=== PATIENT | male | born 1935 | race Caucasian/White ===

== ENCOUNTER 2020-08-27 14:09 | Emergency (ER) | payer MEDICARE, SELFPAY ==
--- NOTE | 2020-08-27 14:13 | XR_ITS ---
WS: [id number] Portable AP upright chest, 08/27/2020 Clinical Data: chest pain Comparison: Portable chest, 10/31/2018. Findings: No nodules, masses or effusions are seen. The heart is normal. The pulmonary vascularity is not increased. No pneumonia or pneumothorax is seen. There is pleural reaction at the left lung base . The aortic arch and descending aorta show calcification and tortuosity. There are old granulomatous changes in both apices. There is a dextroscoliosis of the lower thoracic spine. XR/XR chest 1V portable [id number] Impression: Atherosclerosis and old granulomatous disease.
--- NOTE | 2020-08-27 14:13 | ECG_ITS ---
[facility] Test Date: 2020-08-27 Pat Name: Neo Reynolds Department: Room: Gender: Male Sample Box Maker: : 1935 Requested By: Chelsey Hannon Order Number: [id number] Marcelo MD: Abel Fountain M.D. Measurements Intervals [place] Rate: 99 P: 27 CT: 118 QRS: 97 QRSD: 114 T: -51 QT: 337 QTc: 433 Interpretive Statements SINUS RHYTHM WITH SHORT CT INTERVAL POSSIBLE LEFT ATRIAL ENLARGEMENT [-0.1mV P WAVE IN V1/V2] BORDERLINE RIGHT AXIS DEVIATION [QRS AXIS > 90] MODERATE INTRAVENTRICULAR CONDUCTION DELAY [110+ ms QRS DURATION] ST DEVIATION AND MODERATE T-WAVE ABNORMALITY, CONSIDER ANTEROLATERAL ISCHEMIA [-0.1+ mV T WAVE IN V3-V6] ST DEVIATION AND MODERATE T-WAVE ABNORMALITY, CONSIDER INFERIOR ISCHEMIA [-0.1+ mV T WAVE IN II/aVF] Compared to ECG 10/31/2018 22:14:[address] interval now present Intraventricular conduction delay now present T-wave abnormality still present Electronically Signed On 08-29-2020 17:17:08 CDT by Abel Fountain M.D. [email or web address]. c. watkins memorial hospitalbrotipsselect medical [email or web address]/[id number] f
[2020-08-27 14:25] VITALS: BP 151/62; PULSE 99; RESP 14; TEMP 36.7; O2SAT 93; BMI 24.3
[2020-08-27 16:20] LABS: Basophils % 0.1 %; Hematocrit 41.5 % (42.0-52.0); Hemoglobin 13.6 g/dL (11.7-16.6); Lymphocytes # 0.6 10^3/uL (0.8-4.8); Lymphocytes % 4.9 %; Mean Corpuscular HGB Conc 32.8 g/dL (30.0-36.0); Mean Corpuscular Volume 91.4 fL (80-94); Mean Platelet Volume 10.3 fL (7.4-10.4); Monocytes # 0.5 10^3/uL (0.2-0.9); Monocytes % 4.3 %; Neutrophils # 11.12 10^3/uL (1.8-7.7); Neutrophils % 90.1 %; Nucleated Red Blood Cells % 0 %; Platelet Count 178 10^3/cmm (130-400); Red Blood Count 4.54 10^6/uL (4.1-5.3); Red Cell Distribution Width 12.8 % (12.1-15.1); White Blood Count 12.3 10^3/uL (4.0-10.0)
[2020-08-27 16:53] LABS: Alanine Aminotransferase 14 U/L (0-41); Albumin Level 4.3 g/dL (3.5-5.2); Alkaline Phosphatase 62 IU/L (40-130); Anion Gap 17.7 (5-19); Aspartate Amino Transferase 18 U/L (0-40); Blood Urea Nitrogen 16 mg/dL (8-23); Carbon Dioxide 21 mmol/L (22-29); Chloride 100 mmol/L (98-107); Globulin 2.8 g/dL (1.3-4.6); Glucose 152 mg/dL (65-115); Osmolality Calculated 284 mOsm/kg (285-295); Potassium 3.7 mmol/L (3.5-5.1); Sodium 135 mmol/L (136-145); Total Bilirubin 0.5 mg/dL (0.15-1.2); Total Protein 7.1 g/dL (6.6-8.7)
[2020-08-27 16:54] LABS: Troponin(5th) Baseline 48 ng/L (0-15)
[2020-08-27 18:34] LABS: Troponin 5 2HR 88.81 ng/L (0-15)
[2020-08-27 18:39] LABS: Troponin 5 2HR Delta 40.81 ABS# (0-10)
--- NOTE | 2020-08-27 20:13 | ECG_ITS ---
[facility] Test Date: 2020-08-27 Pat Name: Neo Reynolds Department: Room: Gender: Male Oenologist: : 1935 Requested By: Chelsey Hannon Order Number: [id number] Marcelo MD: Abel Fountain M.D. Measurements Intervals [place] Rate: 86 P: 63 NC: 148 QRS: 99 QRSD: 114 T: 9 QT: 355 QTc: 427 Interpretive Statements SINUS RHYTHM BORDERLINE RIGHT AXIS DEVIATION [QRS AXIS > 90] MODERATE INTRAVENTRICULAR CONDUCTION DELAY [110+ ms QRS DURATION] NONSPECIFIC ST & T-WAVE ABNORMALITY Compared to ECG 08/27/2020 14:34:03 Short NC interval no longer present Possible ischemia no longer present T-wave abnormality still present Electronically Signed On 08-29-2020 17:24:35 CDT by Abel Fountain M.D. [id number]
[2020-08-27 20:32] VITALS: BP 135/91; PULSE 90; RESP 16; TEMP 36.6; O2SAT 96
--- NOTE | 2020-08-27 20:37 | ED_ITS ---
HPI - SOB/Dyspnea General: Chief Complaint: Shortness of Breath/Dyspnea Stated Complaint: Chest Pain Time Seen by Provider: 08/27/20 19:50 Source: patient Mode of arrival: ambulatory Limitations: no limitations History of Present Illness: HPI Narrative: Patient is an 84-year-old male with a history of COPD who had a hospital admission about 2 weeks ago for pneumonia. He states that he has been having progressively worsening shortness of breath and this morning he developed some retrosternal chest pain. He used his albuterol but it did not help the chest pain and eventually his friend/significant other gave him some magnesium tablets which helped the pain a little bit. He was then brought into the emergency department to be evaluated. Because of how busy the ED has been the patient has been in the waiting room for about 8 hours. He states chest pain has resolved. He still has some shortness of breath. At the time he had chest pain his significant other said he was also diaphoretic and nauseous. MD elicited complaint: shortness of breath Pertinent past history: COPD Onset (ago): hour(s) (10) Context: recent illness Timing: constant Severity: moderate Exacerbating factors: exertion Relieving factors: rest Known history of: COPD Associated symptoms: Reports chest pain, diaphoresis and nausea; Deny abdominal pain, chest congestion, cough, dizziness, extremity pain, fever(s), hemoptysis, lightheadedness, myalgias, orthopnea, palpitations, paresthesias, polydipsia, polyuria, rash, sense of impending doom, syncope or vomiting Review of Systems General: Reports: 10 or more systems reviewed and unremarkable except in HPI and below Const: Reports: diaphoresis; Denies: fever(s) Card: Reports: chest pain; Denies: palpitations, lightheadedness, syncope or orthopnea Resp: Denies: hemoptysis or chest congestion GI: Reports: nausea; Denies: abdominal pain or vomiting Musc: Denies: extremity pain Neuro: Denies: dizziness Endo: Denies: polyuria or polydipsia PFSH ED PFSH: Family History Mother Cancer Father Cancer Hypertension Brother Cancer Sister Cancer Social History Smoking and tobacco status: never smoked Alcohol intake: never Physical Exam Const: COMMON NORMALS: no acute distress, average body habitus, patient oriented x3, no limitations, healthy appearing, alert and well nourished HENMT: COMMON NORMALS: normocephalic, atraumatic and moist oral mucous membranes HEAD & SCALP: normocephalic and atraumatic Neck/C-Spine: COMMON NORMALS: no meningeal signs and no JVD Resp: COMMON NORMALS: normal respiratory effort, No retractions, No use of ac cessory muscles, clear to auscultation bilaterally and percussion normal AUSCULTATION: clear to auscultation bilaterally PERCUSSION: percussion normal Cardio: COMMON NORMALS: no JVD, regular rate, regular rhythm, S1 normal heart sound present, S2 normal heart sound present, No gallops present (Cardio), No clicks present (Cardio), No murmurs present (Cardio), No rub (Cardio) and Peripheral pulses 2+ throughout RATE: regular rate RHYTHM: regular rhythm HEART SOUNDS: S1 normal heart sound present and S2 normal heart sound present PERIPHERAL PULSES: Peripheral pulses 2+ throughout GI: COMMON NORMALS: Normal to inspection, nondistended, normoactive bowel sounds present, Soft to palpation, non-tender, No hepatosplenomegaly present, no masses and no bruits PALPATION: Yes Soft to palpation and Yes No hepatosplenomegaly present Extremity: COMMON NORMALS: normal to inspection, full ROM, capillary refill normal, no calf tenderness and no pedal edema Neuro: COMMON NORMALS: patient oriented x3 SENSORIUM/ORIENTATION: Yes alert MENINGEAL SIGNS: Yes no meningeal signs Course Reevaluation(s): Reevaluation #1: Discussed his lab and imaging findings with him. Explained that he is 2-hour troponin delta is consistent with a non-STEMI and I would like to admit him to the hospital. Patient however does not want to be admitted to the hospital and wants to be discharged home. I had a lengthy conversation with him on 2 different occasions to explain to him the seriousness of his condition and potential outcome including . He voiced understanding. Wants to leave AMA. Time: 20:37 Vital Signs: Vital signs: Vital Signs Temperature 97.9 F 08/27/20 20:32 Pulse Rate 89 08/27/20 20:59 Respiratory Rate 19 H 08/27/20 20:59 Blood Pressure 147/69 08/27/20 20:59 Pulse Oximetry 95 08/27/20 20:59 MDM - SOB/Dyspnea MDM Narrative: Medical decision making narrative: 84-year-old male with a history of coronary artery disease, COPD, recent pneumonia presented to the emergency department with shortness of breath and chest pain. Evaluation in the emergency department is consistent with a non-STEMI. The patient however refused admission and wants to sign out AGAINST MEDICAL ADVICE. He however requested a prescription for carvedilol as he was taking it in the hospital and does not have any refills. I had 2 extensive conversations with him about the seriousness of his illness and that if he does not get treatment he may worsen and possibly . He voiced understanding but still wanted to sign out AGAINST MEDICAL ADVICE. He did agree to get a dose of therapeutic enoxaparin before discharge. He significant other tried to contact his daughter to see if she could convince him to stay but she was unable to get her on the phone. He was counseled to return to the emergency department if he has any concerns or if his symptoms worsen. Medical Records: Attestation: I reviewed the patient's medical records. Lab Data: Attestation: I reviewed the patient's lab results. Labs: Lab Results 08/27/20 08/27/20 08/27/20 Range/Units 16:07 16:07 16:07 WBC 12.3 H (4.0-10.0) 10^3/ uL RBC 4.54 (4.1-5.3) 10^6/u L Hgb 13.6 (11.7-16.6) g/dL Hct 41.5 L (42.0-52.0) % MCV 91.4 (80-94) fL MCH 30.0 (28.0-34.0) pg MCHC 32.8 (30.0-36.0) g/dL RDW 12.8 (12.1-15.1) % Plt Count 178 (130-400) 10^3/c mm MPV 10.3 (7.4-10.4) fL Neut % (Auto) 90.1 % Lymph % (Auto) 4.9 % [place] % (Auto) 4.3 % Eos % (Auto) 0.0 % Baso % (Auto) 0.1 % Neut # (Auto) 11.12 H (1.8-7.7) 10^3/u L Lymph # (Auto) 0.6 L (0.8-4.8) 10^3/u L [place] # (Auto) 0.5 (0.2-0.9) 10^3/u L Eos # (Auto) 0.0 (0.0-0.8) 10^3/u L Baso # (Auto) 0.0 (0.0-0.1) 10^3/u L Nucleated RBC % (a uto) 0 % Nucleated RBCs # 0.0 /100WBC Sodium 135 L (136-145) mmol/L Potassium 3.7 (3.5-5.1) mmol/L Chloride 100 (98-107) mmol/L Carbon Dioxide 21 L (22-29) mmol/L Anion Gap 17.7 (5-19) BUN 16 (8-23) mg/dL Creatinine 0.9 (0.7-1.2) mg/dL GFR Calculation Not Reportable Glucose 152 H (65-115) mg/dL Calculated Osmolal ity 284 L (285-295) mOsm/k g Calcium 9.0 (8.5-10.5) mg/dL Total Bilirubin 0.5 (0.15-1.2) mg/dL AST 18 (0-40) U/L ALT 14 (0-41) U/L Alkaline Phosphata se 62 (40-130) IU/L Troponin T Baselin e 48 H (0-15) ng/L Troponin T 120 Min telida (0-15) ng/L Delta Troponin T (0-10) ABS# Total Protein 7.1 (6.6-8.7) g/dL Albumin 4.3 (3.5-5.2) g/dL Globulin 2.8 (1.3-4.6) g/dL 08/27/20 Range/Units 18:06 WBC (4.0-10.0) 10^3/ uL RBC (4.1-5.3) 10^6/u L Hgb (11.7-16.6) g/dL Hct (42.0-52.0) % MCV (80-94) fL MCH (28.0-34.0) pg MCHC (30.0-36.0) g/dL RDW (12.1-15.1) % Plt Count (130-400) 10^3/c mm MPV (7.4-10.4) fL Neut % (Auto) % Lymph % (Auto) % [place] % (Auto) % Eos % (Auto) % Baso % (Auto) % Neut # (Auto) (1.8-7.7) 10^3/u L Lymph # (Auto) (0.8-4.8) 10^3/u L [place] # (Auto) (0.2-0.9) 10^3/u L Eos # (Auto) (0.0-0.8) 10^3/u L Baso # (Auto) (0.0-0.1) 10^3/u L Nucleated RBC % (a uto) % Nucleated RBCs # /100WBC Sodium (136-145) mmol/L Potassium (3.5-5.1) mmol/L Chloride (98-107) mmol/L Carbon Dioxide (22-29) mmol/L Anion Gap (5-19) BUN (8-23) mg/dL Creatinine (0.7-1.2) mg/dL GFR Calculation Glucose (65-115) mg/dL Calculated Osmolal ity (285-295) mOsm/k g Calcium (8.5-10.5) mg/dL Total Bilirubin (0.15-1.2) mg/dL AST (0-40) U/L ALT (0-41) U/L Alkaline Phosphata se (40-130) IU/L Troponin T Baselin e (0-15) ng/L Troponin T 120 Min telida 88.81 H (0-15) ng/L Delta Troponin T 40.81 H* (0-10) ABS# Total Protein (6.6-8.7) g/dL Albumin (3.5-5.2) g/dL Globulin (1.3-4.6) g/dL Imaging Data^: CXR: Attestation: I personally reviewed and interpreted this imaging study as follows: Radiologist's impression: [address] [id number] ReportSigned Patient: Neo Reynolds #: [id number]: 1935cct#:[id number]/Sex: 84 / MADM Date: 08/27/20Loc: ERRoom/Bed:Attending Dr: Ordering Provider/Ordering MD: Chelsey Hannon Date of Service: 08/27/20 Procedure(s): XR chest 1V portable [id number] Accession Number(s): [id number] Report Number: [id number] WS: [id number] Portable AP upright chest, 08/27/2020 Clinical Data: chest pain Comparison: Portable chest, 10/31/2018. Findings: No nodules, masses or effusions are seen. The heart is normal. The pulmonary vascularity is not increased. No pneumonia or pneumothorax is seen. There is pleural reaction at the left lung base. The aortic arch and descending aorta show calcification and tortuosity. There are old granulomatous changes in both apices. There is a dextroscoliosis of the lower thoracic spine. XR/XR chest 1V portable [id number] Impression: Atherosclerosis and old granulomatous disease. Dictated By:Chetna Leonard MDSigned By:Chetna Leonard MDSigned Date/Time:08/27/20 1451DD/ 1449 EKG Data^: EKG 1: Attestation: I personally reviewed and interpreted this EKG as follows: EKG Interpretation Date: 08/27/20 EKG interpretation time: 20:07 Prior EKG tracings: not available for review Interpretation: Sinus rhythm. Heart rate [address] changes. Discharge Plan Discharge Patient Disposition: Left Against Medical Advice Clinical Impression: Non-ST elevation CT (NSTEMI) Condition: Stable Prescriptions: New carvedilol 6.25 mg tablet 6.25 mg PO BID Qty: 60 RF: 0 Continued tamsulosin 0.4 mg capsule 0.4 mg PO DAILY RF: 0 methylprednisolone [Medrol (Shaun)] 4 mg tablets,dose pack See Rx Instructions PO PER PKG DIR Qty: 21 RF: 0 doxycycline hyclate 100 mg tablet 100 mg PO BID 10 Days Qty: 20 RF: 0 Prilosec OTC 20 mg tablet,delayed release (DR/EC) 20 mg PO DAILY RF: 0 nitroglycerin [Nitrostat] 0.4 mg tablet, sublingual 0.4 mg SUBLINGUAL Q5M PRN (Reason: Chest Pain) RF: 0 losartan 25 mg tablet 25 mg PO DAILY RF: 0 amlodipine 5 mg tablet 5 mg PO DAILY RF: 0 Refresh Contacts Drops 1 drop ophthalmic (eye) BID RF: 0 multivitamin Tablet 1 tab PO DAILY RF: 0 alprazolam 0.25 mg tablet 0.25 mg PO BID PRN (Reason: ANXIETY/STRESS) RF: 0 albuterol sulfate 90 mcg/actuation HFA aerosol inhaler 1 - 2 puff INHALATION Q4H PRN (Reason: Dyspnea) RF: 0 fluticasone propionate 50 mcg/actuation spray,suspension 1 - 2 spray INTRANASAL DAILY PRN (Reason: Congestion) RF: 0 omega-3 fatty acids Capsule 1 cap PO DAILY RF: 0 mirtazapine 7.5 mg tablet 7.5 mg PO BEDTIME RF: 0 magnesium Tablet 1 tab PO DAILY RF: 0 Discharge Orders: Discharge ED (Routine); Ordered 08/27/20 Ordered By: Dov De Leon Referrals: Oni Trujillo DO [Primary Care Provider] - 1-3 days Discharge Diet: Usual diet Discharge Activity: Increase activity as tolerated Patient Instructions: Myocardial Infarction (GEN) Activity Restrictions/Additional Instructions: Return for any new or worsening symptoms. Follow-up with your primary care provider within 3 days. Continue your home medications. If you notice any changes including worsening shortness of breath, chest pain, or anything concerning please return to be evaluated. Like we discussed I want you to be admitted to the hospital for heart attack. Coding Level of Care Code ED Purchaser for Dominique Cool
[2020-08-27] MEDS: enoxaparin 80 mg/0.8 mL Syringe 70 MG SUBCUT (20:46)
[2020-08-27 20:59] VITALS: BP 147/69; PULSE 89; RESP 19; O2SAT 95
== END 2020-08-27 21:04 | disposition left against medical advice (07) ==
PROVIDERS: Physician Assistant; Emergency Provider Family Medicine; PCP Family Medicine
DX: I21.4 Non-ST elevation (NSTEMI) myocardial infarction (principal); Z53.21 Procedure and treatment not carried out due to patient leaving prior to being seen by health care provider
CPT/HCPCS: 36415; 71045; 80053; 84484; 85025; 93005; 96372; 99283; J1650

== ENCOUNTER → 2020-09-21 13:03 | Outpatient (BNVA) | payer MEDICARE, SELFPAY | PROVIDERS: PCP Family Medicine; Visit Provider Nurse Practitioner | DX: Z20.822 Contact with and (suspected) exposure to COVID-19 (principal); R53.1 Weakness; R05 Cough | CPT/HCPCS: 71046; 81000; 87635 ==

== ENCOUNTER → 2020-11-14 15:47 | Outpatient (BNVA) | payer MEDICARE, SELFPAY | PROVIDERS: PCP Family Medicine; Visit Provider Nurse Practitioner | DX: M25.519 Pain in unspecified shoulder (principal) | CPT/HCPCS: 73030 ==

== ENCOUNTER → 2021-02-14 13:42 | Outpatient (BNVA) | payer MEDICARE, SELFPAY | PROVIDERS: PCP Family Medicine; Visit Provider Nurse Practitioner Family | DX: Z20.822 Contact with and (suspected) exposure to COVID-19 (principal); Z20.828 Contact with and (suspected) exposure to other viral communicable diseases | CPT/HCPCS: 87635 ==

== ENCOUNTER 2021-08-03 14:55 | Emergency (ER) | payer MEDICARE, SELFPAY ==
[2021-08-03 15:19] VITALS: BP 148/70; PULSE 72; RESP 16; TEMP 36.6; O2SAT 92; BMI 22.1
--- NOTE | 2021-08-03 16:19 | ED_ITS ---
Documented by User: JAX Bhakta 08/03/21 16:38 HPI - Fall General: Chief Complaint: Fall Stated Complaint: BACK PAIN FROM FALL Time Seen by Provider: 08/03/21 16:06 Source: patient and family (daughter) Mode of arrival: wheelchair Limitations: no limitations (hard of hearing-hearing aid batteries are ) History of Present Illness: Patient is an 85-year-old male who presents to ED today along with his daughter for evaluation following a fall. Patient resides at the [facility] and states around 2 AM in the morning he got up from bed and tripped and fell and landed onto his right side/ribs. Patient states he did not strike his head or lose consciousness. He was able to pull his call light for help and states the nurses were able to help get him up. Patient denies any other pain or injury sustained during his fall. He does report previous right rib fractures that felt similar to his discomfort now. He is not complaining of shortness of breath or difficulty breathing. No abdominal pain. No midline back pain or hip pain. MD complaint: fall Onset (ago): hour(s) Fall from: standing Fall witnessed: no Place fall occurred: detention/SNF Loss of consciousness: None Prolonged down time: no Symptoms prior to fall: none Context: tripped/slipped Location of injury: chest Associated symptoms-after fall: Reports chest pain (R posterior rib pain); Denies abdominal pain, headache(s), lightheadedness or neck pain Review of Systems Const: Denies: fever(s) Eyes: Denies: change in vision Card: Reports: chest pain (R posterior rib pain); Denies: palpitations, irregular heart rhythm, lightheadedness, syncope or pre- syncope Resp: Reports: dyspnea (chronic due to COPD-at baseline); Denies: wheezing or hemoptysis GI: Denies: abdominal pain, nausea or vomiting Musc: Denies: neck pain, back pain, extremity pain or joint pain Neuro: Denies: headache(s) PFS ED PFSH: Family History Mother Cancer Father Cancer Hypertension Brother Cancer Sister Cancer Social History Alcohol intake: never Physical Exam Const: COMMON NORMALS: no limitations and alert GENERAL APPEARANCE: cooperative ORIENTATION/CONSCIOUSNESS: Yes awake, Yes oriented to person and Yes oriented to place HENMT: COMMON NORMALS: normocephalic and atraumatic HEAD & SCALP: normal to inspection, normocephalic and atraumatic FACE & SINUS: normal facial exam Neck/C-Spine: COMMON NORMALS: full ROM GENERAL: Yes normal visual inspection CERVICAL SPINE: Yes cervical ROM normal, No pain with cervical ROM, No Cervical spine tenderness and No Paracervical muscle tenderness Chest: COMMONS NORMALS: normal inspection of the chest CHEST: Yes localized rib tenderness with anteroposterior compression OTHER: TTP R posterior ribs Resp: COMMON NORMALS: normal respiratory effort AUSCULTATION: other (diffuse course lung sounds bilaterally most likely chronic from his COPD) Cardio: COMMON NORMALS: regular rate and regular rhythm RATE: regular rate RHYTHM: regular rhythm GI: COMMON NORMALS: Normal to inspection, nondistended, normoactive bowel sounds present, Soft to palpation, non-tender, No hepatosplenomegaly present and no masses INSPECTION: No abdominal wall ecchymosis PALPATION: Yes Soft to palpation and Yes No hepatosplenomegaly present Back/Pelvis: COMMON NORMALS: thoracic and lumbar spine normal to inspection, no thoracic nor lumbar tenderness and thoraco-lumbar ROM normal THORACIC SPINE/UPPER BACK: Yes normal to inspection and No thoracic spinal tenderness LUMBAR SPINE/LOWER BACK: Yes normal to inspection and No lumbar spinal tender ness PELVIS: Yes buttocks normal SACROILIAC JOINTS: Yes SI joints normal SACRUM: no tenderness COCCYX: no tenderness Extremity: COMMON NORMALS: normal to inspection and full ROM GENERAL: Yes normal exam except as noted Neuro: OSIEL COMA SCALE: document GCS findings [place] coma scale eye opening: Spontaneous [place] coma scale verbal response: Orientated [place] coma scale motor response: Obey commands Osiel coma scale total score: 15 COMMON NORMALS: moves all extremities, no focal motor deficits and no sensory deficits noted SENSORIUM/ORIENTATION: Yes alert, Yes oriented to person and Yes or iented to place Skin: TRAUMA: no lacerations or abrasions Course Vital Signs: Vital signs: Vital Signs Temperature 97.9 F 08/03/21 15:19 Pulse Rate 72 08/03/21 15:19 Respiratory Rate 16 08/03/21 15:19 Blood Pressure 148/70 08/03/21 15:19 Pulse Oximetry 92 08/03/21 15:19 MDM - Fall Lab Data : 08/03/21 17:05 08/03/21 17:05 Radiology Impressions Ribs X-Ray 08/03/21 16:26 IMPRESSION: 1. Acute right 6th, 7th, and 8th rib fractures. Chest/Abdomen/Pelvis CT 08/03/21 17:03 IMPRESSION: 1. Acute right 5th through 10th rib fractures as described. 2. 2.3 cm irregular nodule along the right major fissure. For both low risk and high risk patients, consider CT Chest at 3 months, PET/CT, or biopsy. IMPRESSION: 1. No acute finding in the abdomen or pelvis. COMMENTS: Consistent with the [employer]'s Incidental Findings Committee white paper (J Am Tiff Radiol 2018): Any incidental renal lesion less than 1 cm or classified as too small to characterize, or any incidental cystic renal lesion characterized as simple-appearing, is likely benign. No follow-up imaging is recommended for these lesions per consensus recommendations based on imaging criteria. Laboratory Results WBC 10.9 10^3/uL (4.0-10.0) H 08/03/21 17:05 RBC 4.71 10^6/uL (4.1-5.3) 08/03/21 17:05 Hgb 13.8 g/dL (11.7-16.6) 08/03/21 17:05 Hct 41.9 % (42.0-52.0) L 08/03/21 17:05 MCV 89.0 fl (80-94) 08/03/21 17:05 MCH 29.3 pg (28.0-34.0) 08/03/21 17:05 MCHC 32.9 g/dL (30.0-36.0) 08/03/21 17:05 RDW 13.0 % (12.1-15.1) 08/03/21 17:05 Plt Count 212 10^3/cmm (130-400) 08/03/21 17:05 MPV 10.1 fL (7.4-10.4) 08/03/21 17:05 Neut % (Auto) 77.5 % 08/03/21 17:05 Lymph % (Auto) 12.9 % 08/03/21 17:05 [place] % (Auto) 8.5 % 08/03/21 17:05 Eos % (Auto) 0.5 % 08/03/21 17:05 Baso % (Auto) 0.2 % 08/03/21 17:05 Neut # (Auto) 8.49 10^3/uL (1.8-7.7) H 08/03/21 17:05 Lymph # (Auto) 1.4 10^3/uL (0.8-4.8) 08/03/21 17:05 [place] # (Auto) 0.9 10^3/uL (0.2-0.9) 08/03/21 17:05 Eos # (Auto) 0.1 10^3/uL (0.0-0.8) 08/03/21 17:05 Baso # (Auto) 0.0 10^3/uL (0.0-0.1) 08/03/21 17:05 Nucleated RBC % (auto) 0 % 08/03/21 17:05 Nucleated RBCs # 0.0 /100WBC 08/03/21 17:05 Sodium 128 mmol/L (136-145) L 08/03/21 17:05 Potassium 4.4 mmol/L (3.5-5.1) 08/03/21 17:05 Chloride 92 mmol/L (98-107) L 08/03/21 17:05 Carbon Dioxide 24 mmol/L (22-29) 08/03/21 17:05 Anion Gap 16.4 (5-19) 08/03/21 17:05 BUN 17 mg/dL (8-23) 08/03/21 17:05 Creatinine 0.7 mg/dL (0.7-1.2) 08/03/21 17:05 GFR Calculation Not Reportable 08/03/21 17:05 Glucose 106 mg/dL (65-115) 08/03/21 17:05 Calculated Osmolality 268 mOsm/kg (285-295) L 08/03/21 17:05 Calcium 9.2 mg/dL (8.5-10.5) 08/03/21 17:05 Total Bilirubin 1.0 mg/dL (0.15-1.2) 08/03/21 17:05 AST 28 U/L (0-40) 08/03/21 17:05 ALT 15 U/L (0-41) 08/03/21 17:05 Alkaline Phosphatase 64 IU/L (40-130) 08/03/21 17:05 Total Protein 7.7 g/dL (6.6-8.7) 08/03/21 17:05 Albumin 4.6 g/dL (3.5-5.2) 08/03/21 17:05 Globulin 3.1 g/dL (1.3-4.6) 08/03/21 17:05 Discharge Plan Discharge Patient Disposition: Transfer to ED Clinical Impression: Multiple fractures of rib involving four or more ribs, Fall from slipping Condition: Stable Prescriptions: No Action tamsulosin 0.4 mg capsule 0.4 mg PO DAILY 0RF Prilosec OTC 20 mg tablet,delayed release (DR/EC) 20 mg PO DAILY 0RF nitroglycerin [Nitrostat] 0.4 mg tablet, sublingual 0.4 mg SUBLINGUAL Q5M PRN (Reason: Chest Pain) 0RF losartan 25 mg tablet 25 mg PO DAILY 0RF amlodipine 5 mg tablet 5 mg PO DAILY 0RF Refresh Contacts Drops 1 drop ophthalmic (eye) BID 0RF multivitamin Tablet 1 tab PO DAILY 0RF alprazolam 0.25 mg tablet 0.25 mg PO BID PRN (Reason: ANXIETY/STRESS) 0RF albuterol sulfate 90 mcg/actuation HFA aerosol inhaler 1 - 2 puff INHALATION Q4H PRN (Reason: Dyspnea) 0RF fluticasone propionate 50 mcg/actuation spray,suspension 1 - 2 spray INTRANASAL DAILY PRN (Reason: Congestion) 0RF omega-3 fatty acids Capsule 1 cap PO DAILY 0RF mirtazapine 7.5 mg tablet 7.5 mg PO BEDTIME 0RF magnesium Tablet 1 tab PO DAILY 0RF carvedilol 6.25 mg tablet 6.25 mg PO BID Qty: 60 0RF Rx Instructions: must administer with a meal/food Referrals: Oni Trujillo, DO [Primary Care Provider] - Sign Out Sign Out Data: Patient Sign Out occurred on 08/03/21 at 17:15. Patient's care was discussed, and care was transferred from to Mio Meade. Coding Level of Care Code ED Synthetic Cloth Binding Cutter for Chg Fwd Exam Comprehensive Documented by User: JF Dorsey 08/03/21 19:32 HPI - Fall General: Chief Complaint: Fall Stated Complaint: BACK PAIN FROM FALL Time Seen by Provider: 08/03/21 16:06 [facility] ED PFSH: Family History Mother Cancer Father Cancer Hypertension Brother Cancer Sister Cancer Social History Alcohol intake: never Physical Exam Neuro: OSIEL COMA SCALE: document GCS findings [place] coma scale total score: 15 Course ED course: 1919, CT noted 6 rib fractures 5 through 10. No other obvious in juries noted. Patient answers questions. Reviewed patient with Dr. Kitchen, attending ER physician. Patient will need to be transferred for trauma care due to multiple rib fractures and comorbidities. I reviewed this with family who agreed to plan. Vital Signs: Vital signs: Vital Signs Temperature 97.9 F 08/03/21 15:19 Pulse Rate 72 08/03/21 15:19 Respiratory Rate 16 08/03/21 15:19 Blood Pressure 148/70 08/03/21 15:19 Pulse Oximetry 92 08/03/21 15:19 MDM - Fall Medical Decision Making 85-year-old male patient comes in today with injuries to the right ribs. Patient had slipped and fell in the tub striking his right ribs against the tub. Patient has pain and discomfort with movement to the right chest wall. Patient does have a history of prior rib fractures, COPD, GERD, BPH, and resides at a [facility]. On exam patient is tender in the right lateral ribs. Patient has decreased lung sounds in the right. Patient is alert and responds to questions. Abdomen soft with some with no tenderness. Vital signs are stable with a blood pressure of 148 systolic. Differential diagnosis includes but not limited to multiple rib fractures, lung contusion, organ injury. Chest x-ray confirmed 3 rib fractures [address] was recommended by Dr. Rawls and CT showed acute right rib fractures 5 through 10, no other acute findings were noted in the abdomen or pelvis. CBC had a bump in the white blood cell count at 10,000. CMP noted a sodium of 128 and potassium of 4.4. Reviewed exam with Dr. Kitchen after CT report he recommended transfer to trauma center due to multiple rib fractures and patient's age. Patient was transferred to [facility] in [place] for trauma to Dr. Jackson Lab Data : 08/03/21 17:05 08/03/21 17:05 Radiology Impressions Ribs X-Ray 08/03/21 16:26 IMPRESSION: 1. Acute right 6th, 7th, and 8th rib fractures. Chest/Abdomen/Pelvis CT 08/03/21 17:03 IMPRESSION: 1. Acute right 5th through 10th rib fractures as described. 2. 2.3 cm irregular nodule along the right major fissure. For both low risk and high risk patients, consider CT Chest at 3 months, PET/CT, or biopsy. IMPRESSION: 1. No acute finding in the abdomen or pelvis. COMMENTS: Consistent with the [employer]'s Incidental Findings Committee white paper (J Am Tiff Radiol 2018): Any incidental renal lesion less than 1 cm or classified as too small to characterize, or any incidental cystic renal lesion characterized as simple-appearing, is likely benign. No follow-up imaging is recommended for these lesions per consensus recommendations based on imaging criteria. Laboratory Results WBC 10.9 10^3/uL (4.0-10.0) H 08/03/21 17:05 RBC 4.71 10^6/uL (4.1-5.3) 08/03/21 17:05 Hgb 13.8 g/dL (11.7-16.6) 08/03/21 17:05 Hct 41.9 % (42.0-52.0) L 08/03/21 17:05 MCV 89.0 fl (80-94) 08/03/21 17:05 MCH 29.3 pg (28.0-34.0) 08/03/21 17:05 MCHC 32.9 g/dL (30.0-36.0) 08/03/21 17:05 RDW 13.0 % (12.1-15.1) 08/03/21 17:05 Plt Count 212 10^3/cmm (130-400) 08/03/21 17:05 MPV 10.1 fL (7.4-10.4) 08/03/21 17:05 Neut % (Auto) 77.5 % 08/03/21 17:05 Lymph % (Auto) 12.9 % 08/03/21 17:05 [place] % (Auto) 8.5 % 08/03/21 17:05 Eos % (Auto) 0.5 % 08/03/21 17:05 Baso % (Auto) 0.2 % 08/03/21 17:05 Neut # (Auto) 8.49 10^3/uL (1.8-7.7) H 08/03/21 17:05 Lymph # (Auto) 1.4 10^3/uL (0.8-4.8) 08/03/21 17:05 [place] # (Auto) 0.9 10^3/uL (0.2-0.9) 08/03/21 17:05 Eos # (Auto) 0.1 10^3/uL (0.0-0.8) 08/03/21 17:05 Baso # (Auto) 0.0 10^3/uL (0.0-0.1) 08/03/21 17:05 Nucleated RBC % (auto) 0 % 08/03/21 17:05 Nucleated RBCs # 0.0 /100WBC 08/03/21 17:05 Sodium 128 mmol/L (136-145) L 08/03/21 17:05 Potassium 4.4 mmol/L (3.5-5.1) 08/03/21 17:05 Chloride 92 mmol/L (98-107) L 08/03/21 17:05 Carbon Dioxide 24 mmol/L (22-29) 08/03/21 17:05 Anion Gap 16.4 (5-19) 08/03/21 17:05 BUN 17 mg/dL (8-23) 08/03/21 17:05 Creatinine 0.7 mg/dL (0.7-1.2) 08/03/21 17:05 GFR Calculation Not Reportable 08/03/21 17:05 Glucose 106 mg/dL (65-115) 08/03/21 17:05 Calculated Osmolality 268 mOsm/kg (285-295) L 08/03/21 17:05 Calcium 9.2 mg/dL (8.5-10.5) 08/03/21 17:05 Total Bilirubin 1.0 mg/dL (0.15-1.2) 08/03/21 17:05 AST 28 U/L (0-40) 08/03/21 17:05 ALT 15 U/L (0-41) 08/03/21 17:05 Alkaline Phosphatase 64 IU/L (40-130) 08/03/21 17:05 Total Protein 7.7 g/dL (6.6-8.7) 08/03/21 17:05 Albumin 4.6 g/dL (3.5-5.2) 08/03/21 17:05 Globulin 3.1 g/dL (1.3-4.6) 08/03/21 17:05 Discharge Plan Discharge Patient Disposition: Transfer to ED Clinical Impression: Multiple fractures of rib involving four or more ribs, Fall from slipping Condition: Stable Prescriptions: No Action tamsulosin 0.4 mg capsule 0.4 mg PO DAILY 0RF Prilosec OTC 20 mg tablet,delayed release (DR/EC) 20 mg PO DAILY 0RF nitroglycerin [Nitrostat] 0.4 mg tablet, sublingual 0.4 mg SUBLINGUAL Q5M PRN (Reason: Chest Pain) 0RF losartan 25 mg tablet 25 mg PO DAILY 0RF amlodipine 5 mg tablet 5 mg PO DAILY 0RF Refresh Contacts Drops 1 drop ophthalmic (eye) BID 0RF multivitamin Tablet 1 tab PO DAILY 0RF alprazolam 0.25 mg tablet 0.25 mg PO BID PRN (Reason: ANXIETY/STRESS) 0RF albuterol sulfate 90 mcg/actuation HFA aerosol inhaler 1 - 2 puff INHALATION Q4H PRN (Reason: Dyspnea) 0RF fluticasone propionate 50 mcg/actuation spray,suspension 1 - 2 spray INTRANASAL DAILY PRN (Reason: Congestion) 0RF omega-3 fatty acids Capsule 1 cap PO DAILY 0RF mirtazapine 7.5 mg tablet 7.5 mg PO BEDTIME 0RF magnesium Tablet 1 tab PO DAILY 0RF carvedilol 6.25 mg tablet 6.25 mg PO BID Qty: 60 0RF Rx Instructions: must administer with a meal/food Referrals: Oni Trujillo DO [Primary Care Provider] - Sign Out Sign Out Data: Patient Sign Out occurred on 08/03/21 at 17:15. Patient's care was discussed, and care was transferred from to Mio Meade. Coding Level of Care Code ED Synthetic Cloth Binding Cutter for Chg Fwd Exam Comprehensive Documented by User: Otis Kitchen MD 08/17/21 18:14 HPI - Fall General: Chief Complaint: Fall Stated Complaint: BACK PAIN FROM FALL Time Seen by Provider: 08/03/21 16:06 [facility] ED PFSH: Family History Mother Cancer Father Cancer Hypertension Brother Cancer Sister Cancer Social History Alcohol intake: never Physical Exam Neuro: OSIEL COMA SCALE: document GCS findings [place] coma scale total score: 15 Course Vital Signs: Vital signs: Vital Signs Temperature 97.9 F 08/03/21 15:19 Pulse Rate 72 08/03/21 15:19 Respiratory Rate 16 08/03/21 15:19 Blood Pressure 148/70 08/03/21 15:19 Pulse Oximetry 92 08/03/21 15:19 MDM - Fall Medical Decision Making 85-year-old male patient comes in today with injuries to the right ribs. Patient had slipped and fell in the tub striking his right ribs against the tub. Patient has pain and discomfort with movement to the right chest wall. Patient does have a history of prior rib fractures, COPD, GERD, BPH, and resides at a [facility] living [facility]. On exam patient is tender in the right lateral ribs. Patient has decreased lung sounds in the right. Patient is alert and responds to questions. Abdomen soft with some with no tenderness. Vital signs are stable with a blood pressure of 148 systolic. Differential diagnosis includes but not limited to multiple rib fractures, lung contusion, organ injury. Chest x-ray confirmed 3 rib fractures [address] was recommended by Dr. Rawls and CT showed acute right rib fractures 5 through 10, no other acute findings were noted in the abdomen or pelvis. CBC had a bump in the white blood cell count at 10,000. CMP noted a sodium of 128 and potassium of 4.4. Reviewed exam with Dr. Kitchen after CT report he recommended transfer to trauma [facility] due to multiple rib fractures and patient's age. Patient was transferred to [facility] in [place] for trauma to Dr. Jackson I discussed this case with JF Diaz. I personally saw the patient just prior to transfer. I reviewed documentation, labs, imaging. Given multiple contiguous fractures in the context of patient's age patient is high risk for mortality and morbidity and requires the expertise of a trauma team. Otis Kitchen MD Emergency Medicine Lab Data : 08/03/21 17:05 08/03/21 17:05 Radiology Impressions Ribs X-Ray 08/03/21 16:26 IMPRESSION: 1. Acute right 6th, 7th, and 8th rib fractures. Chest/Abdomen/Pelvis CT 08/03/21 17:03 IMPRESSION: 1. Acute right 5th through 10th rib fractures as described. 2. 2.3 cm irregular nodule along the right major fissure. For both low risk and high risk patients, consider CT Chest at 3 months, PET/CT, or biopsy. IMPRESSION: 1. No acute finding in the abdomen or pelvis. COMMENTS: Consistent with the [employer]'s Incidental Findings Committee white paper (J Am Tiff Radiol 2018): Any incidental renal lesion less than 1 cm or classified as too small to characterize, or any incidental cystic renal lesion characterized as simple-appearing, is likely benign. No follow-up imaging is recommended for these lesions per consensus recommendations based on imaging criteria. Laboratory Results WBC 10.9 10^3/uL (4.0-10.0) H 08/03/21 17:05 RBC 4.71 10^6/uL (4.1-5.3) 08/03/21 17:05 Hgb 13.8 g/dL (11.7-16.6) 08/03/21 17:05 Hct 41.9 % (42.0-52.0) L 08/03/21 17:05 MCV 89.0 fl (80-94) 08/03/21 17:05 MCH 29.3 pg (28.0-34.0) 08/03/21 17:05 MCHC 32.9 g/dL (30.0-36.0) 08/03/21 17:05 RDW 13.0 % (12.1-15.1) 08/03/21 17:05 Plt Count 212 10^3/cmm (130-400) 08/03/21 17:05 MPV 10.1 fL (7.4-10.4) 08/03/21 17:05 Neut % (Auto) 77.5 % 08/03/21 17:05 Lymph % (Auto) 12.9 % 08/03/21 17:05 [place] % (Auto) 8.5 % 08/03/21 17:05 Eos % (Auto) 0.5 % 08/03/21 17:05 Baso % (Auto) 0.2 % 08/03/21 17:05 Neut # (Auto) 8.49 10^3/uL (1.8-7.7) H 08/03/21 17:05 Lymph # (Auto) 1.4 10^3/uL (0.8-4.8) 08/03/21 17:05 [place] # (Auto) 0.9 10^3/uL (0.2-0.9) 08/03/21 17:05 Eos # (Auto) 0.1 10^3/uL (0.0-0.8) 08/03/21 17:05 Baso # (Auto) 0.0 10^3/uL (0.0-0.1) 08/03/21 17:05 Nucleated RBC % (auto) 0 % 08/03/21 17:05 Nucleated RBCs # 0.0 /100WBC 08/03/21 17:05 Sodium 128 mmol/L (136-145) L 08/03/21 17:05 Potassium 4.4 mmol/L (3.5-5.1) 08/03/21 17:05 Chloride 92 mmol/L (98-107) L 08/03/21 17:05 Carbon Dioxide 24 mmol/L (22-29) 08/03/21 17:05 Anion Gap 16.4 (5-19) 08/03/21 17:05 BUN 17 mg/dL (8-23) 08/03/21 17:05 Creatinine 0.7 mg/dL (0.7-1.2) 08/03/21 17:05 GFR Calculation Not Reportable 08/03/21 17:05 Glucose 106 mg/dL (65-115) 08/03/21 17:05 Calculated Osmolality 268 mOsm/kg (285-295) L 08/03/21 17:05 Calcium 9.2 mg/dL (8.5-10.5) 08/03/21 17:05 Total Bilirubin 1.0 mg/dL (0.15-1.2) 08/03/21 17:05 AST 28 U/L (0-40) 08/03/21 17:05 ALT 15 U/L (0-41) 08/03/21 17:05 Alkaline Phosphatase 64 IU/L (40-130) 08/03/21 17:05 Total Protein 7.7 g/dL (6.6-8.7) 08/03/21 17:05 Albumin 4.6 g/dL (3.5-5.2) 08/03/21 17:05 Globulin 3.1 g/dL (1.3-4.6) 08/03/21 17:05 Discharge Plan Discharge Patient Disposition: Transfer to ED Clinical Impression: Multiple fractures of rib involving four or more ribs, Fall from slipping Condition: Stable Prescriptions: No Action tamsulosin 0.4 mg capsule 0.4 mg PO DAILY 0RF Prilosec OTC 20 mg tablet,delayed release (DR/EC) 20 mg PO DAILY 0RF nitroglycerin [Nitrostat] 0.4 mg tablet, sublingual 0.4 mg SUBLINGUAL Q5M PRN (Reason: Chest Pain) 0RF losartan 25 mg tablet 25 mg PO DAILY 0RF amlodipine 5 mg tablet 5 mg PO DAILY 0RF Refresh Contacts Drops 1 drop ophthalmic (eye) BID 0RF multivitamin Tablet 1 tab PO DAILY 0RF alprazolam 0.25 mg tablet 0.25 mg PO BID PRN (Reason: ANXIETY/STRESS) 0RF albuterol sulfate 90 mcg/actuation HFA aerosol inhaler 1 - 2 puff INHALATION Q4H PRN (Reason: Dyspnea) 0RF fluticasone propionate 50 mcg/actuation spray,suspension 1 - 2 spray INTRANASAL DAILY PRN (Reason: Congestion) 0RF omega-3 fatty acids Capsule 1 cap PO DAILY 0RF mirtazapine 7.5 mg tablet 7.5 mg PO BEDTIME 0RF magnesium Tablet 1 tab PO DAILY 0RF carvedilol 6.25 mg tablet 6.25 mg PO BID Qty: 60 0RF Rx Instructions: must administer with a meal/food Referrals: Oni Trujillo, DO [Primary Care Provider] - Sign Out Sign Out Data: Patient Sign Out occurred on 08/03/21 at 17:15. Patient's care was discussed, and care was transferred from to Mio Meade. Coding Level of Care Code ED Synthetic Cloth Binding Cutter for Hardikg Fwd Exam Comprehensive
--- NOTE | 2021-08-03 16:26 | XRR_ITS ---
PROCEDURE INFORMATION: Exam: XR Right Ribs with PA Chest Exam date and time: 08/03/2021 4:34 PM Age: 85 years old Clinical indication: Pain and injury or trauma; Fall; Rib area; Blunt trauma (contusions or hematomas); Chest wall pain; Right; Additional info: Trauma; Rib pain TECHNIQUE: Imaging protocol: Radiologic exam of the Right ribs with PA chest. Views: 3 views COMPARISON: CR XR chest 2V* [id number] 09/21/2020 1:11 PM FINDINGS: Lungs: Stable scarring in the left lung apex. Calcified granuloma in the right apex. Mild interstitial scarring in the lung bases. Pleural spaces: Unremarkable. No pleural effusion. No pneumothorax. Heart/Mediastinum: Unremarkable. No cardiomegaly. Bones/joints: Acute right lateral 6th rib fracture. Acute posterior right 7th and 8th rib fractures. Old healed posterior right 7th through 9th rib fractures. XR/XR ribs RT mn 3V w CXR1V [id number] IMPRESSION: 1. Acute right 6th, 7th, and 8th rib fractures.
--- NOTE | 2021-08-03 17:03 | CTR_ITS ---
PROCEDURE INFORMATION: Exam: CT Chest With Contrast; Diagnostic Exam date and time: 08/03/2021 6:31 PM Age: 85 years old Clinical indication: Chest wall pain and right-sided; Additional info: Trauma; Fall; Multiple R rib fxs on XR TECHNIQUE: Imaging protocol: Diagnostic computed tomography of the chest with contrast. Radiation optimization: All CT scans at this facility use at least one of these dose optimization techniques: automated exposure control; mA and/or kV adjustment per patient size (includes targeted exams where dose is matched to clinical indication); or iterative reconstruction. Contrast material: OMNI 350; Contrast volume: 85 ml; Contrast route: INTRAVENOUS (IV); COMPARISON: CR (CHEST, ) 08/03/2021 4:34 PM RADIATION DOSE METRICS: Total DLP (mGy-cm): 1193.21 FINDINGS: Lungs: Severe centrilobular emphysema. Fibrosis with parenchymal calcifications in the lung apices. Mild interstitial scarring scattered throughout both lungs. 2.3 cm irregular nodular density along the superior right major fissure. This may be arising from the pleural or the lung parenchyma. Pleural spaces: No pleural effusion. No pneumothorax. Heart: Coronary artery calcifications. The heart size is normal. Lymph nodes: Calcified mediastinal and hilar lymph nodes. No enlarged lymph nodes. Vasculature: Unremarkable. No aortic aneurysm. Bones/joints: Acute displaced posterior right 7th, 8th, 9th, and 10th rib fractures. Acute displaced right lateral 5th and 6th rib fractures. Minimally displaced probable acute right lateral 7th and 8th rib fractures. Multiple old healed right rib fractures. Degenerative changes of the spine. No compression fracture. Soft tissues: Unremarkable. (Reference: Taya) References: Krishobrii Cortez, et al. Guidelines for Management of Incidental Pulmonary Nodules Detected on CT Images: From the Fleischner Society 2017. Radiology. 2017;284(1):228-243. PROCEDURE INFORMATION: Exam: CT Abdomen And Pelvis With Contrast Exam date and time: 08/03/2021 6:31 PM Age: 85 years old Clinical indication: Chest wall pain and right-sided; Additional info: Trauma; Fall; Multiple R rib fxs on XR TECHNIQUE: Imaging protocol: Computed tomography of the abdomen and pelvis with contrast. Radiation optimization: All CT scans at this facility use at least one of these dose optimization techniques: automated exposure control; mA and/or kV adjustment per patient size (includes targeted exams where dose is matched to clinical indication); or iterative reconstruction. Contrast material: OMNI 350; Contrast volume: 85 ml; Contrast route: INTRAVENOUS (IV); COMPARISON: CT abdomen pelvis w con* [id number] 09/21/2017 11:37 AM RADIATION DOSE METRICS: Total DLP (mGy-cm): 1193.21 FINDINGS: Liver: Hypodensity in the right liver lobe is too small to characterize but is most likely a cyst. No follow-up imaging is recommended. Gallbladder and bile ducts: Normal. No calcified stones. No ductal dilation. Pancreas: Normal. No ductal dilation. Spleen: Normal. No splenomegaly. Adrenal glands: Normal. No mass. Kidneys and ureters: Left renal cyst, Hounsfield units less than 20. Additional hypodensities in the left kidney are too small to characterize but are most likely cysts. No follow-up imaging is recommended. The kidneys are otherwise unremarkable. No hydronephrosis. Stomach and bowel: Diverticulosis of the colon. No wall thickening or diverticulitis. The stomach and small bowel are unremarkable. No obstruction. Appendix: The appendix is visualized and is normal. Intraperitoneal space: Unremarkable. No free air. No significant fluid collection. Vasculature: Arterial calcifications. No aneurysm. Lymph nodes: Unremarkable. No enlarged lymph nodes. Urinary bladder: Unremarkable as visualized. Reproductive: Small calcifications in the prostate which is upper normal in size. Bones/joints: Minimal anterior wedging of L1 is chronic and unchanged. No acute fracture identified. Degenerative changes of the spine. Bone island in the proximal left femur. Soft tissues: Small fat containing right inguinal hernia. CT/CT chest abd pel w con* IMPRESSION: 1. Acute right 5th through 10th rib fractures as described. 2. 2.3 cm irregular nodule along the right major fissure. For both low risk and high risk patients, consider CT Chest at 3 months, PET/CT, or biopsy. IMPRESSION: 1. No acute finding in the abdomen or pelvis. COMMENTS: Consistent with the [employer]'s Incidental Findings Committee white paper (J Am Tiff Radiol 2018): Any incidental renal lesion less than 1 cm or classified as too small to characterize, or any incidental cystic renal lesion characterized as simple-appearing, is likely benign. No follow-up imaging is recommended for these lesions per consensus recommendations based on imaging criteria.
[2021-08-03] MEDS: ondansetron 2 mg/ML SDV 2 mL 4 MG IVP (17:15)
[2021-08-03] MEDS: morphine 4 mg/mL SDV 1 mL IVP (17:15)
[2021-08-03 17:21] LABS: Basophils % 0.2 %; Eosinophils # 0.1 10^3/uL (0.0-0.8); Eosinophils % 0.5 %; Hematocrit 41.9 % (42.0-52.0); Hemoglobin 13.8 g/dL (11.7-16.6); Lymphocytes # 1.4 10^3/uL (0.8-4.8); Lymphocytes % 12.9 %; Mean Corpuscular HGB Conc 32.9 g/dL (30.0-36.0); Mean Corpuscular Hemoglobin 29.3 pg (28.0-34.0); Mean Platelet Volume 10.1 fL (7.4-10.4); Monocytes # 0.9 10^3/uL (0.2-0.9); Monocytes % 8.5 %; Neutrophils # 8.49 10^3/uL (1.8-7.7); Neutrophils % 77.5 %; Nucleated Red Blood Cells % 0 %; Platelet Count 212 10^3/cmm (130-400); Red Blood Count 4.71 10^6/uL (4.1-5.3); White Blood Count 10.9 10^3/uL (4.0-10.0)
[2021-08-03 17:38] LABS: Alanine Aminotransferase 15 U/L (0-41); Albumin Level 4.6 g/dL (3.5-5.2); Alkaline Phosphatase 64 IU/L (40-130); Anion Gap 16.4 (5-19); Aspartate Amino Transferase 28 U/L (0-40); Blood Urea Nitrogen 17 mg/dL (8-23); Calcium 9.2 mg/dL (8.5-10.5); Carbon Dioxide 24 mmol/L (22-29); Chloride 92 mmol/L (98-107); Creatinine Clr Calc Pharmacy 62.2978; Globulin 3.1 g/dL (1.3-4.6); Glucose 106 mg/dL (65-115); Osmolality Calculated 268 mOsm/kg (285-295); Potassium 4.4 mmol/L (3.5-5.1); Sodium 128 mmol/L (136-145); Total Protein 7.7 g/dL (6.6-8.7)
[2021-08-03] MEDS: iohexol 350 mg/mL 100 mL Btl IV (18:32)
== END 2021-08-03 20:09 ==
PROVIDERS: Physician Assistant; Emergency Provider Nurse Practitioner Family; PCP Family Medicine
DX: S22.41XA Multiple fractures of ribs, right side, initial encounter for closed fracture (principal); W01.198A Fall on same level from slipping, tripping and stumbling with subsequent striking against other object, initial encounter; Y92.128 Other place in nursing home as the place of occurrence of the external cause; H91.90 Unspecified hearing loss, unspecified ear
CPT/HCPCS: 71101; 71260; 74177; 80053; 85025; 96374; 96375; 99285; J2270; J2405; Q9967